=== PATIENT | female | born 1945 | race Caucasian/White ===

== ENCOUNTER 2016-09-13 16:00 | Outpatient (RCR) | payer OTHER | END 2016-09-27 | disposition home or self-care (01) | LOC: PTY 16:00 | DX: E53.8 Deficiency of other specified B group vitamins (principal); M62.81 Muscle weakness (generalized); M54.12 Radiculopathy, cervical region; G56.00 Carpal tunnel syndrome, unspecified upper limb; G62.9 Polyneuropathy, unspecified; G58.9 Mononeuropathy, unspecified | CPT/HCPCS: 97110; 97140; 97163; G0283 ==

== ENCOUNTER 2016-10-03 13:19 | Outpatient (RCR) | payer OTHER | END 2016-10-27 | disposition home or self-care (01) | LOC: PTY 13:19 | DX: E53.8 Deficiency of other specified B group vitamins (principal); M62.81 Muscle weakness (generalized); M54.12 Radiculopathy, cervical region; M54.16 Radiculopathy, lumbar region; G56.00 Carpal tunnel syndrome, unspecified upper limb | CPT/HCPCS: 97110; 97140; G0283 ==

== ENCOUNTER 2017-02-18 12:56 | Outpatient (RCR) | payer OTHER | END 2017-02-27 | disposition home or self-care (01) | LOC: PTY 12:56 | DX: M54.16 Radiculopathy, lumbar region (principal); M54.12 Radiculopathy, cervical region; I10 Essential (primary) hypertension; Z86.73 Personal history of transient ischemic attack (TIA), and cerebral infarction without residual deficits; M19.90 Unspecified osteoarthritis, unspecified site; J44.9 Chronic obstructive pulmonary disease, unspecified; F41.9 Anxiety disorder, unspecified; M81.0 Age-related osteoporosis without current pathological fracture; Z98.1 Arthrodesis status | CPT/HCPCS: 97110; 97163; G0283 ==

== ENCOUNTER 2017-03-12 07:06 | Day surgery (SDC) | payer OTHER ==
[~2017-03-12] VITALS: Ht 170.2 cm; Wt 80.7 kg
[~2017-03-12 07:06] MED LIST: ADVAIR 500-501 EACH INH; AVAPRO150 MG ORAL; Akten 3.5% 1ml Btl RIGHT EYE SCH; ONDANSETRON HCL8 M1 PO; PANTOPRAZOLE SO40 MG ORAL; PERCOCET 7.5-31 EACH ORAL; PREDNISONE10 MG ORAL; Phenylephrine 2.5% Op Soln RIGHT EYE SCH; TRAZODONE HCL100 MG ORAL; Tobradex Opth Susp 2.5ml RIGHT EYE SCH; Tropicamide 1% Opth Soln RIGHT EYE SCH; VITAMIN D1000 UNI1 ORAL; Vigamox Opth Soln RIGHT EYE SCH; [UNRECOGNIZED DRUG - OTHER] PO
[2017-03-12] MEDS ORDERED: Tropicamide 1% Opth Soln ONE (07:46)
[2017-03-12] MEDS ORDERED: Vigamox Opth Soln ONE (07:46)
[2017-03-12] MEDS ORDERED: Akten 3.5% 1ml Btl ONE (07:46)
[2017-03-12] MEDS ORDERED: Tobradex Opth Susp 2.5ml ONE (07:46)
[2017-03-12] MEDS ORDERED: Phenylephrine 2.5% Op Soln ONE (07:46)
--- NOTE | 2017-03-12 07:49 | Pre-Procedure Note/Attestation ---
Pre-Procedure Note/Attestation Complete Prior to Procedure Planned Procedure: right Procedure Narrative: cataract extraction with implant right eye Indications for Procedure Pre-Operative Diagnosis: cataract right eye Attestation I attest that I discussed the nature of the procedure; its benefits; risks and complications; and alternatives (and the risks and benefits of such alternatives ), prior to the procedure, with the patient (or the patient's legal sales representative printing). I attest that, if there was a reasonable possibility of needing a blood transfusion, the patient (or the patient's legal sales representative printing) was given the [facility] standardized written summary, pursuant to the [place] Blood Safety Act ([place] Health and Safety Code # 1645, as amended). I attest that I re-evaluated the patient just prior to the surgery and that there has been no change in the patient's H&P, except as documented below: FLACO WALTON Mar 12, 2017 07:49
[2017-03-12] MEDS: Phenylephrine 2.5% Op Soln RIGHT EYE SCH ×3 (07:51→08:01)
[2017-03-12] MEDS: Tobradex Opth Susp 2.5ml RIGHT EYE SCH ×3 (07:51→08:02)
[2017-03-12] MEDS: Tropicamide 1% Opth Soln RIGHT EYE SCH ×3 (07:51→08:02)
[2017-03-12] MEDS: Vigamox Opth Soln RIGHT EYE SCH ×3 (07:51→08:02)
[2017-03-12] MEDS: Akten 3.5% 1ml Btl RIGHT EYE SCH ×3 (07:51→08:01)
[2017-03-12 08:12] VITALS: BP 124/67
[2017-03-12 10:10] VITALS: BP 132/59
[2017-03-12 10:30] VITALS: BP 131/65
== END 2017-03-12 10:35 | disposition home or self-care (01) ==
LOC: SUR 07:06
DX: H26.9 Unspecified cataract (principal); I10 Essential (primary) hypertension; J44.9 Chronic obstructive pulmonary disease, unspecified; Z72.0 Tobacco use; M48.07 Spinal stenosis, lumbosacral region; Z53.9 Procedure and treatment not carried out, unspecified reason; Z53.29 Procedure and treatment not carried out because of patient's decision for other reasons